=== PATIENT | female | born 1985 | race Caucasian/White ===

== ENCOUNTER 2016-09-27 13:57 | Outpatient (CLI) | payer MEDICARE, MEDICAID ==
--- NOTE | 2016-09-27 17:22 | ULT ---
RIGHT LOWER EXTREMITY VENOUS ULTRASOUND WITH DOPPLER HISTORY: Outer right thigh pain x1 month. COMPARISON: None. TECHNIQUE: Pacheco scale, color flow, Doppler imaging, and spectral waveform analysis performed of the right lower extremity venous system. FINDINGS: There is compressibility, presence of flow, and augmentation in the common femoral vein, femoral vei n, and popliteal vein. There is flow in the greater saphenous vein and profunda vein. There is flow in the posterior tibial vein. IMPRESSION: No evidence of thrombus in the right lower extremity deep venous system. POS: DEVON
== END 2016-09-27 13:58 | disposition home or self-care (01) ==
LOC: NAV ULT 13:57
PROVIDERS: ATTEND Nurse Practitioner
DX: Z39.2 Encounter for routine postpartum follow-up (principal); M79.651 Pain in right thigh

== ENCOUNTER 2017-03-18 16:44 | Emergency (ER) | payer MEDICARE, OTHER ==
[~2017-03-18 16:44] MED LIST: Iopamidol 370 76% 100 ML VIAL ONE
[2017-03-18] MEDS ORDERED: Sodium Chloride 0.9% 1,000 ML ONE ×2 (17:13→19:08)
[2017-03-18] MEDS ORDERED: Ondansetron HCl/PF 4 MG/2 ML Vial ONE (17:13)
[2017-03-18] MEDS ORDERED: Acetaminophen 500 MG TAB ONE (17:13)
[2017-03-18] MEDS ORDERED: Morphine Sulfate 2 MG/ML SYRINGE ONE (17:13)
[2017-03-18 17:28] LABS: Lactic Acid 1.2 mmol/L (0.5-2.2)
[2017-03-18 17:32] LABS: ALT (SGPT) 31 U/L (8-55); AST (SGOT) 23 U/L (5-34); Albumin 3.6 g/dL (3.5-5.0); Alkaline Phosphatase 82 U/L (40-150); Anion Gap 15 mmol/L (10-20); BUN (Urea Nitrogen) 7 mg/dL (7.0-18.7); Bilirubin, Total 0.8 mg/dL (0.2-1.2); Calc. Creatinine Clearance 0 mL/min (70-130); Calcium 9.5 mg/dL (7.8-10.44); Carbon Dioxide 25 mmol/L (22-29); Chloride 99 mmol/L (98-107); Estimated GFR-MDRD 87; Globulin 4.3 g/dL (2.4-3.5); Glucose 148 mg/dL (70-105); Lipase 13 U/L (8-78); Potassium 3.2 mmol/L (3.5-5.1); Protein, Total 7.9 g/dL (6.0-8.3); Sodium 136 mmol/L (136-145)
[2017-03-18 17:40] LABS: Bilirubin Negative (Negative); Blood, Urine Trace (Negative); Glucose, Urine (Dipstick) Negative (Negative); Leukocyte Negative (Negative); Nitrite Negative (Negative); Protein, Urine (Dipstick) 100 mg/dL (Neg-Trace); Specific Gravity, Urine 1.015 (1.005-1.030); pH, Urine 7.5 (5.0-9.0)
[2017-03-18 17:48] LABS: #Basophils 0.2 thou/uL (0.0-0.2); #Eosinphils 0.2 thou/uL (0.0-0.7); #Lymphocytes 3.1 thou/uL (1.20-3.40); #Monocytes 1.1 thou/uL (0.11-0.59); #Neutrophils 14.3 thou/uL (1.40-6.50); %Basophils 0.8 % (0.0-1.0); %Eosinophils 1.2 % (0.0-10.0); %Lymphocytes 16.3 % (21.0-51.0); %Monocytes 5.6 % (0.0-10.0); %Neutrophils 76.1 % (42.0-75.0); Mean Corpuscular HGB CONC 30.7 g/dL (32.0-36.0); Mean Corpuscular Hemoglobin 24.7 pg (27.0-31.0); Mean Corpuscular Volume 80.3 fl (81.0-99.0); Platelet Count 302 thou/uL (130-400); RBC Distribution Width 16.5 % (11.5-14.5); Red Blood Cell (RBC) Count 4.88 mill/uL (4.20-5.40); White Blood Cell (WBC) Count 18.8 thou/uL (4.8-10.8)
[2017-03-18 17:48] LABS: Clarity SL HAZY (Clear)
[2017-03-18 17:49] LABS: Pregnancy Test - Urine (BHCG) Negative (NEGATIVE); Pregu Control Background? CLEAR/WHITE (CLR/WHITE); Pregu Control Bar Appear? YES (CONTROL BAR); Specific Gravity 1.015 (1.002-1.036)
[2017-03-18 17:52] LABS: Bacteria/HPF Rare-Few HPF (None Seen); RBC/HPF 0-3 HPF (0-3); Squamous Epithelial 0-3 HPF (0-3); WBC/HPF 0-3 HPF (0-3)
[2017-03-18] MEDS ORDERED: Ibuprofen 800 MG TAB ONE (18:20)
[2017-03-18] MEDS ORDERED: Sodium Chloride 0.9% 100 ML ONE (18:20)
[2017-03-18] MEDS ORDERED: Cefepime 2 GM VIAL ONE (18:20)
[2017-03-18] MEDS ORDERED: metroNIDAZOLE 500 MG/100 ML BAG ONE (19:08)
--- NOTE | 2017-03-18 21:07 | CT ---
CT ABDOMEN AND PELVIS WITH IV AND ORAL CONTRAST 03/18/17 HISTORY: Right lower quadrant pain. FINDINGS: The lung bases are clear. The gallbladder is surgically absent. A 1.0 cm calculus is present within a nondilated calyx at the inferior pole of the right kidney. Extensive fat stranding and a small amount of free fluid are present within the right lower quadrant surrounding the cecum. The oral contrast has not yet reached the cecum. The appendix is not well de lineated within the inflammation. Reactive appearing lymph nodes are seen within the right lower aylin drant. The terminal ileum lies within the inflammation but does not appear to be abnormal. Urinary b ladder is unremarkable. IMPRESSION: 1. Large area of right lower quadrant inflammatory where the appendix should be. Appendix is no t visualized and may be hidden amongst the inflammation. No abscess collection is evident. Acute randall endicitis is favored. 2. Nonobstructing 1 cm right renal calculus. Findings were called to Dr. Bolton in the Emergency Department at 1866 hours. Code CR POS: SJ
== END 2017-03-18 19:29 | disposition short-term general hospital (02) ==
LOC: NAV ERS 16:44
DX: K35.80 Unspecified acute appendicitis (principal); F41.9 Anxiety disorder, unspecified; F32.9 Major depressive disorder, single episode, unspecified; F17.210 Nicotine dependence, cigarettes, uncomplicated; Z79.899 Other long term (current) drug therapy
CPT/HCPCS: 51701; 74177; 80053; 81003; 81015; 81025; 83605; 83690; 85025; 87040; 96365; 96375; A4353; J0692; J2270; J2405; J7050

== ENCOUNTER 2018-09-11 17:27 | Emergency (ER) | payer MEDICARE, MEDICAID ==
[2018-09-11] MEDS ORDERED: Bacitracin Zinc 1 Packet ONE (17:45)
[2018-09-11] MEDS ORDERED: Ibuprofen 800 MG TAB ONE (17:53)
== END 2018-09-11 17:54 | disposition home or self-care (01) ==
LOC: NAV ERS 17:27
DX: S91.201A Unspecified open wound of right great toe with damage to nail, initial encounter (principal); F41.9 Anxiety disorder, unspecified; F32.9 Major depressive disorder, single episode, unspecified; F17.210 Nicotine dependence, cigarettes, uncomplicated; W22.8XXA Striking against or struck by other objects, initial encounter
CPT/HCPCS: 11750

== ENCOUNTER 2018-09-14 18:17 | Emergency (ER) | payer MEDICARE, OTHER ==
[2018-09-14] MEDS ORDERED: Bacitracin Zinc 1 Packet ONE (18:44)
== END 2018-09-14 19:09 | disposition home or self-care (01) ==
LOC: NAV ERS 18:17
DX: M79.674 Pain in right toe(s) (principal); F41.9 Anxiety disorder, unspecified; F32.9 Major depressive disorder, single episode, unspecified; F17.210 Nicotine dependence, cigarettes, uncomplicated; Z71.6 Tobacco abuse counseling
CPT/HCPCS: 99406

== ENCOUNTER 2021-12-29 02:56 | Emergency (ER) | payer MEDICARE, MEDICAID ==
[2021-12-29 03:26] LABS: Clarity Clear (Clear); Glucose, Urine (Dipstick) Negative (Negative); Leukocyte Negative (Negative); Nitrite Negative (Negative); Protein, Urine (Dipstick) Negative (Neg-Trace); Specific Gravity, Urine 1.025 (1.005-1.030)
[2021-12-29 03:27] LABS: Bacteria/HPF 1+ HPF (None Seen); Bilirubin Negative (Negative); Blood, Urine Trace (Negative); Ketone, Urine Negative (Negative); RBC/HPF 0-3 HPF (0-3); Squamous Epithelial 0-3 HPF (0-3)
[2021-12-29 03:27] LABS: White Blood Cell (WBC) Count 11.4 thou/uL (4.8-10.8)
[2021-12-29 03:28] LABS: #Basophils 0.1 thou/uL (0.0-0.2); #Eosinphils 0.4 thou/uL (0.0-0.7); #Lymphocytes 3.9 thou/uL (1.20-3.40); #Monocytes 0.7 thou/uL (0.11-0.59); #Neutrophils 6.3 thou/uL (1.40-6.50); %Basophils 0.9 % (0.0-1.0); %Eosinophils 3.7 % (0.0-10.0); %Lymphocytes 33.9 % (21.0-51.0); %Monocytes 6.2 % (0.0-10.0); %Neutrophils 55.4 % (42.0-75.0); Hemoglobin 10.5 g/dL (12.0-16.0); Manual Diff?? NO; Mean Corpuscular HGB CONC 29.1 g/dL (32.0-36.0); Mean Corpuscular Hemoglobin 24.1 pg (27.0-31.0); Mean Corpuscular Volume 82.9 fL (78.0-98.0); Mean Platelet Volume 8.6 fL (7.4-10.4); Platelet Count 289 thou/uL (130-400); RBC Distribution Width 16.5 % (11.5-14.5); Red Blood Cell (RBC) Count 4.37 mill/uL (4.20-5.40)
[2021-12-29] MEDS ORDERED: Sodium Chloride 0.9% 1,000 ML ONE (03:38)
[2021-12-29] MEDS ORDERED: Ketorolac Tromethamine 30 MG/ML VIAL ONE (03:38)
[2021-12-29 03:39] LABS: ALT (SGPT) 15 U/L (8-55); AST (SGOT) 19 U/L (5-34); Albumin 3.8 g/dL (3.5-5.0); Alkaline Phosphatase 66 U/L (40-110); Anion Gap 14 mmol/L (10-20); BUN (Urea Nitrogen) 10 mg/dL (7.0-18.7); Bilirubin, Total 0.5 mg/dL (0.2-1.2); Calc. Creatinine Clearance 0 mL/min (70-130); Calcium 8.8 mg/dL (7.8-10.44); Carbon Dioxide 23 mmol/L (22-29); Chloride 108 mmol/L (98-107); Globulin 3.1 g/dL (2.4-3.5); Glucose 104 mg/dL (70-105); Potassium 3.6 mmol/L (3.5-5.1); Protein, Total 6.9 g/dL (6.0-8.3); Sodium 141 mmol/L (136-145)
[2021-12-29] MEDS ORDERED: Fentanyl 100 MCG/2 ML VIAL ONE (06:27)
[2021-12-29] MEDS ORDERED: Orphenadrine Citrate 60 MG/2 ML VIAL ONE (07:29)
[2021-12-29] MEDS ORDERED: Cipro 250 MG TAB ONE (07:29)
== END 2021-12-29 07:45 | disposition home or self-care (01) ==
LOC: NAV ERS 02:56
DX: N39.0 Urinary tract infection, site not specified (principal); F17.210 Nicotine dependence, cigarettes, uncomplicated; Z87.442 Personal history of urinary calculi
CPT/HCPCS: 74176; 80053; 81003; 81015; 85025; 87086; 96374; 96375; J1885; J2360; J3010; J7050

== ENCOUNTER 2022-10-26 19:14 | Emergency (ER) | payer MEDICARE, OTHER ==
[2022-10-26] MEDS ORDERED: Ketorolac Tromethamine 30 MG/ML VIAL ONE (19:48)
[2022-10-26] MEDS ORDERED: Sodium Chloride 0.9% 1,000 ML ONE (19:48)
[2022-10-26] MEDS ORDERED: Ondansetron PF 4 MG/2 ML Vial ONE (19:48)
== END 2022-10-26 21:00 | disposition home or self-care (01) ==
LOC: NAV ERS 19:14
DX: A08.4 Viral intestinal infection, unspecified (principal); F17.210 Nicotine dependence, cigarettes, uncomplicated
CPT/HCPCS: 87804; 96361; 96374; 96375; J1885; J2405; J7050

== ENCOUNTER 2023-04-02 21:27 | Emergency (ER) | payer MEDICARE, MEDICAID ==
[2023-04-02] MEDS ORDERED: Sodium Chloride 0.9% 1,000 ML ONE (22:00)
[2023-04-02] MEDS ORDERED: Morphine 4 MG/ML VIAL ONE (22:00)
[2023-04-02 22:06] LABS: #Basophils 0.1 thou/uL (0.0-0.2); #Eosinphils 0.4 thou/uL (0.0-0.7); #Lymphocytes 2.8 thou/uL (1.20-3.40); #Monocytes 0.7 thou/uL (0.11-0.59); #Neutrophils 6.8 thou/uL (1.40-6.50); %Basophils 0.7 % (0.0-1.0); %Eosinophils 3.7 % (0.0-10.0); %Lymphocytes 26.2 % (21.0-51.0); %Monocytes 6.4 % (0.0-10.0); Hematocrit 35.3 % (36.0-47.0); Hemoglobin 11.3 g/dL (12.0-16.0); Mean Corpuscular HGB CONC 31.9 g/dL (32.0-36.0); Mean Corpuscular Hemoglobin 27.5 pg (27.0-31.0); Mean Corpuscular Volume 86.1 fl (78.0-98.0); Mean Platelet Volume 7.4 fL (7.4-10.4); Platelet Count 261 10x3/uL (130-400); RBC Distribution Width 13.8 % (11.5-14.5); Red Blood Cell (RBC) Count 4.11 mill/uL (4.20-5.40); White Blood Cell (WBC) Count 10.8 10x3/uL (4.8-10.8)
[2023-04-02 22:11] LABS: Bilirubin Negative (Negative); Blood, Urine Trace (Negative); Clarity Clear (Clear); Glucose, Urine (Dipstick) Negative (Negative); Ketone, Urine Negative (Negative); Leukocyte Negative (Negative); Nitrite Negative (Negative); Protein, Urine (Dipstick) Negative (Neg-Trace); Specific Gravity, Urine 1.025 (1.005-1.030); Urobilinogen 0.2 mg/dL (Less than 2)
[2023-04-02 22:12] LABS: Bacteria/HPF Rare-Few HPF (None Seen); CAUTI Indications for Culture Pelvic or flank pain; RBC/HPF 0-3 HPF (0-3); WBC/HPF 0-3 HPF (0-3)
[2023-04-02 22:13] LABS: Urine Culture Reflex No No
[2023-04-02 22:19] LABS: ALT (SGPT) 14 U/L (8-55); AST (SGOT) 18 U/L (5-34); Albumin 3.7 g/dL (3.5-5.0); Alkaline Phosphatase 71 U/L (40-110); Anion Gap 12 mmol/L (10-20); BUN (Urea Nitrogen) 18 mg/dL (7.0-18.7); Bilirubin, Total 0.4 mg/dL (0.2-1.2); Calc. Creatinine Clearance 0 mL/min (70-130); Calcium 8.6 mg/dL (7.8-10.44); Carbon Dioxide 24 mmol/L (22-29); Chloride 107 mmol/L (98-107); Estimated GFR 102; Globulin 3.2 g/dL (2.4-3.5); Glucose 104 mg/dL (70-105); Potassium 3.8 mmol/L (3.5-5.1); Protein, Total 6.9 g/dL (6.0-8.3); Sodium 139 mmol/L (136-145)
[2023-04-02] MEDS ORDERED: Ketorolac Tromethamine 30 MG/ML VIAL ONE (23:38)
== END 2023-04-02 23:47 | disposition home or self-care (01) ==
LOC: NAV ERS 21:27
DX: R10.9 Unspecified abdominal pain (principal); F17.210 Nicotine dependence, cigarettes, uncomplicated
CPT/HCPCS: 74177; 80053; 81001; 85025; 94760; 96374; 96375; J1885; J2270; J7050; Q9967

== ENCOUNTER 2024-03-06 11:01 | Emergency (ER) | payer MEDICARE, OTHER ==
[2024-03-06 11:34] LABS: Bilirubin Negative (Negative); Blood, Urine Moderate (Negative); Clarity Clear (Clear); Glucose, Urine (Dipstick) Negative (Negative); Ketone, Urine Negative (Negative); Leukocyte Small (Negative); Nitrite Negative (Negative); Protein, Urine (Dipstick) 30 mg/dL (Neg-Trace)
[2024-03-06 11:41] LABS: Bacteria/HPF 1+ HPF (None Seen); CAUTI Indications for Culture Dysuria,urgency,freq; RBC/HPF Greater than 50 HPF (0-3); Squamous Epithelial 0-3 HPF (0-3)
[2024-03-06 11:43] LABS: Specific Gravity, Urine 1.025 (1.002-1.036); Urine Culture Reflex Yes Yes
[2024-03-06] MEDS ORDERED: Sulfameth/Trimethoprim DS 800-160mg TAB ONE (11:56)
== END 2024-03-06 12:04 | disposition home or self-care (01) ==
LOC: NAV ERS 11:01
DX: N30.00 Acute cystitis without hematuria (principal); F17.210 Nicotine dependence, cigarettes, uncomplicated
CPT/HCPCS: 81001; 87086; 99283

== ENCOUNTER 2024-08-08 16:15 | Emergency (ER) | payer MEDICARE, OTHER ==
[2024-08-08 17:45] LABS: #Lymphocytes 1.3 thou/uL (1.20-3.40); #Monocytes 0.7 thou/uL (0.11-0.59); #Neutrophils 6.9 thou/uL (1.40-6.50); %Basophils 0.4 % (0.0-1.0); %Eosinophils 0.1 % (0.0-10.0); %Lymphocytes 14.4 % (21.0-51.0); %Monocytes 7.6 % (0.0-10.0); %Neutrophils 77.5 % (42.0-75.0); Hematocrit 45.7 % (36.0-47.0); Hemoglobin 14.4 g/dL (12.0-16.0); Mean Corpuscular HGB CONC 31.6 g/dL (32.0-36.0); Mean Corpuscular Hemoglobin 27.5 pg (27.0-31.0); Mean Platelet Volume 8.8 fL (7.4-10.4); Platelet Count 242 10x3/uL (130-400); RBC Distribution Width 12.7 % (11.5-14.5); Red Blood Cell (RBC) Count 5.25 mill/uL (4.20-5.40); White Blood Cell (WBC) Count 8.9 10x3/uL (4.8-10.8)
[2024-08-08 17:48] LABS: Bilirubin Small (Negative); Blood, Urine Negative (Negative); Clarity Clear (Clear); Glucose, Urine (Dipstick) Negative (Negative); Ketone, Urine 15 mg/dL (Negative); Leukocyte Negative (Negative); Nitrite Negative (Negative); Protein, Urine (Dipstick) 100 mg/dL (Neg-Trace)
[2024-08-08 17:55] LABS: CAUTI Indications for Culture Fever or rigors; RBC/HPF 0-3 HPF (0-3)
[2024-08-08 17:56] LABS: Bacteria/HPF Rare-Few HPF (None Seen); Mucous/LPF 2+ LPF (<2+); Urine Culture Reflex No No
[2024-08-08 18:04] LABS: ALT (SGPT) 19 U/L (8-55); AST (SGOT) 35 U/L (5-34); Albumin 3.2 g/dL (3.5-5.0); Alkaline Phosphatase 67 U/L (40-110); Anion Gap 13 mmol/L (10-20); BUN (Urea Nitrogen) 13 mg/dL (7.0-18.7); Bilirubin, Total 0.6 mg/dL (0.2-1.2); Calc. Creatinine Clearance 0 mL/min (70-130); Carbon Dioxide 27 mmol/L (22-29); Chloride 101 mmol/L (98-107); Estimated GFR 99; Glucose 118 mg/dL (70-105); Potassium 3.8 mmol/L (3.5-5.1); Protein, Total 8.2 g/dL (6.0-8.3); Sodium 137 mmol/L (136-145)
== END 2024-08-08 18:46 | disposition home or self-care (01) ==
LOC: NAV ERS 16:15
DX: J10.08 Influenza due to other identified influenza virus with other specified pneumonia (principal); J12.9 Viral pneumonia, unspecified; F17.210 Nicotine dependence, cigarettes, uncomplicated
CPT/HCPCS: 71046; 80053; 81001; 83605; 85025; 87400; 87426

== ENCOUNTER 2025-06-02 13:46 | Emergency (ER) | payer MEDICARE, OTHER, SELFPAY ==
[2025-06-02 14:12] LABS: Glucose, Urine (Dipstick) Negative (Negative); Leukocyte Small (Negative); Protein, Urine (Dipstick) 100 mg/dL (Neg-Trace); Specific Gravity, Urine 1.025 (1.005-1.030)
[2025-06-02 14:17] LABS: Bacteria/HPF 4+ HPF (None Seen); CAUTI Indications for Culture Pelvic or flank pain; WBC/HPF Greater Than 50 HPF (0-3)
[2025-06-02 14:18] LABS: Mucous/LPF 1+ LPF (<2+); Urine Culture Reflex Yes Yes
== END 2025-06-02 14:35 | disposition home or self-care (01) ==
LOC: NAV ERS 13:46
DX: N39.0 Urinary tract infection, site not specified (principal); F17.210 Nicotine dependence, cigarettes, uncomplicated; Z95.1 Presence of aortocoronary bypass graft
CPT/HCPCS: 81001; 87077; 87086; 87186; 99283